=== PATIENT | female | born 1995 | race Caucasian/White ===

== ENCOUNTER → 2023-04-15 | Outpatient (CLI) | payer OTHER | LOC: AMSURD 16:57 | DX: R07.9 Chest pain, unspecified (principal); I49.8 Other specified cardiac arrhythmias ==

== ENCOUNTER → 2023-05-12 | Outpatient (CLI) | payer OTHER ==
[2023-05-12 10:16] LABS: BASO # 0.06 K/mm3 (0.02-0.10); EOS # 0.36 K/mm3 (0.04-0.40); EOS % 4.9 % (1.0-5.0); HEMATOCRIT 42.3 % (37.0-47.0); HEMOGLOBIN 13.5 g/dL (12.5-16.0); LYMPH# 1.19 K/mm3 (1.50-4.00); MEAN CELL VOLUME 92 fl (78-100); MEAN CORPUSCULAR HEMOGLOBIN 29 pg (27-31); MEAN CORPUSCULAR HGB CONC 32 g/dL (33-37); MEAN PLATELET VOLUME 10.5 fl (7.4-10.4); MONO # 0.28 K/mm3 (0.20-0.80); NEU # 5.38 K/mm3 (1.40-6.50); PLATELET COUNT 294 K/mm3 (130-400); RED BLOOD COUNT 4.61 M/mm3 (4.10-5.30); RED CELL DISTRIBUTION WIDTH 12.3 % (11.5-14.5); WHITE BLOOD COUNT 7.3 K/mm3 (4.8-10.8)
[2023-05-12 10:24] LABS: ALBUMIN 4.5 g/dL (3.5-5.0)
[2023-05-12 10:25] LABS: CALCIUM 9.5 mg/dL (8.3-10.5)
[2023-05-12 10:26] LABS: TOTAL PROTEIN 7.9 g/dL (6.4-8.3)
[2023-05-12 10:57] LABS: TOTAL BILIRUBIN 0.4 mg/dL (0.2-1.2)
[2023-05-12 22:00] LABS: LUTENIZING HORMONE 4.3 mIU/mL (()); PROGESTERONE 0.1 ng/mL (())
== END ==
LOC: LAB 09:57
PROVIDERS: Nurse Practitioner
DX: Z00.00 Encounter for general adult medical examination without abnormal findings (principal); R53.83 Other fatigue

== ENCOUNTER → 2024-05-12 | Outpatient (CLI) | payer BC ==
[2024-05-12 09:14] LABS: BASO # 0.05 K/mm3 (0.02-0.10); EOS # 0.67 K/mm3 (0.04-0.40); EOS % 10.2 % (1.0-5.0); HEMATOCRIT 42.8 % (37.0-47.0); HEMOGLOBIN 13.7 g/dL (12.5-16.0); LYMPH# 1.41 K/mm3 (1.50-4.00); MEAN CELL VOLUME 93 fl (78-100); MEAN CORPUSCULAR HEMOGLOBIN 30 pg (27-31); MEAN CORPUSCULAR HGB CONC 32 g/dL (33-37); MEAN PLATELET VOLUME 10.6 fl (7.4-10.4); MONO # 0.32 K/mm3 (0.20-0.80); NEU # 4.07 K/mm3 (1.40-6.50); PLATELET COUNT 286 K/mm3 (130-400); RED BLOOD COUNT 4.62 M/mm3 (4.10-5.30); RED CELL DISTRIBUTION WIDTH 12.5 % (11.5-14.5); WHITE BLOOD COUNT 6.5 K/mm3 (4.8-10.8)
[2024-05-12 09:17] LABS: ALBUMIN 4.3 g/dL (3.5-5.0)
[2024-05-12 09:18] LABS: CALCIUM 9.4 mg/dL (8.3-10.5)
[2024-05-12 09:19] LABS: TOTAL PROTEIN 7.3 g/dL (6.4-8.3)
[2024-05-12 09:21] LABS: TOTAL BILIRUBIN 0.3 mg/dL (0.2-1.2)
== END ==
LOC: LAB 08:58
PROVIDERS: Nurse Practitioner
DX: Z13.220 Encounter for screening for lipoid disorders (principal); Z00.00 Encounter for general adult medical examination without abnormal findings